=== PATIENT | male | born 1975 | race Native Hawaiian/Other Pacific Islander ===

== ENCOUNTER 2021-10-26 13:02 | Outpatient (CLI) | payer OTHER ==
[~2021-10-26] VITALS: Ht 182.9 cm; Wt 104.3 kg
== END 2021-10-26 20:28 | disposition home or self-care (01) ==
LOC: INF 13:02
PROVIDERS: ATTEND Internal Medicine Endocrinology, Diabetes & Metabolism
DX: Z23 Encounter for immunization (principal); U07.1 COVID-19
CPT/HCPCS: 96365; M0244